=== PATIENT | male | born 1965 | race Caucasian/White ===

== ENCOUNTER 2018-01-04 15:12 | Observation (INO) | payer OTHER ==
[2018-01-04 15:39] VITALS: BMI 30.5
[2018-01-04] MEDS ORDERED: SODIUM CHLORIDE 500 ML IV STA (15:50)
[2018-01-04 16:12] LABS: BASO % 0.1 % (0-2.0); EOS % 0.8 % (0-4.5); HEMATOCRIT 50.1 % (35.4-49); HEMOGLOBIN 16.3 GM/dl (11.7-16.9); LYMPH % 10.5 % (8-40); MCH 28.6 pg (25.7-33.7); MCHC 32.5 g/dl (32.0-35.9); MEAN CELL VOLUME 88.1 fl (80-96); MEAN PLT VOLUME 7.7 fl (7.5-11.1); MONO % 13.1 % (3.8-10.2); NEUT % 75.5 % (42.8-82.8); PLATELET COUNT 267 K/MM3 (134-434); RBC 5.69 M/mm3 (4.00-5.60); RDW 15.3 % (11.9-15.9); WHITE BLOOD COUNT 14.3 K/mm3 (4.0-10.8)
[2018-01-04 16:16] LABS: INR 1.48 (0.82-1.09); PROTHROMBIN TIME (PATIENT) 16.4 SEC (10.2-13.0)
[2018-01-04 16:34] LABS: ALBUMIN 4.3 g/dl (3.5-5.0); ALK PHOS 44 U/L (32-92); ANION GAP 11 MMOL/L (8-16); BILIRUBIN,TOTAL 1.2 mg/dl (0.2-1.0); BLOOD UREA NITROGEN 19 mg/dl (7-18); CALCIUM 9.5 mg/dl (8.4-10.2); CHLORIDE 103 mmol/L (98-107); CO2 23 mmol/L (22-28); CREATININE 1.1 mg/dl (0.6-1.3); GLUCOSE,RANDOM 81 mg/dl (74-106); MAGNESIUM 1.8 mg/dL (1.8-2.4); SGOT/AST 30 U/L (10-42); SGPT/ALT 46 U/L (10-40); SODIUM 137 mmol/L (136-145); TOT PROT 7.5 g/dl (6.4-8.3)
--- NOTE | 2018-01-04 16:35 | PDOC ---
Attending Attestation - Resident Resident Name: Jeremías Harding - ED Attending Attestation I have performed the following: I have examined & evaluated the patient, The case was reviewed & discussed with the resident, I agree w/resident's findings & plan, Exceptions are as noted - HPI HPI: 01/04/18 16:27 52 M with h/o HTN, hypothyroid, pAfib on xarelto, presenting with palpitations. Pt states that he had sudden onset heart-racing at approx 8am today while putting air in his tires. Pt has h/o recurrent afib and states that he has been cardioverted out of it every single time (approx 5 episodes). He states that he is normally in normal sinus. Pt takes xarelto prophylactically and reports good compliance with this medication. Pt denies CP/SOB/lightheadedness. Denies recent F/C/N/V/D. Denies abdominal pain. - Physicial Exam PE: 01/04/18 16:31 "GENERAL: Awake, alert, and fully oriented, in no acute distress. HEAD: No signs of trauma EYES: PERRLA, EOMI, sclera anicteric, conjunctiva clear ENT: Auricles normal inspection, hearing grossly normal, nares patent, oropharynx clear without exudates. Moist mucosa NECK: Nontender, no stepoffs, Normal ROM, supple, no lymphadenopathy, JVD, or masses LUNGS: Breath sounds equal, clear to auscultation bilaterally. No wheezes, and no crackles HEART: + irregular rate and rhythm, no murmurs, rubs or gallops ABDOMEN: Soft, nontender, normoactive bowel sounds. No guarding, no rebound. No masses EXTREMITIES: Normal range of motion, no edema. No clubbing or cyanosis. No cords, erythema, or tenderness NEUROLOGICAL: Cranial nerves II through XII intact. 5/5 strength and sensation in all extremities, Normal speech, normal gait, normal cerebellar function SKIN: Warm, Dry, normal turgor, no rashes or lesions noted." - Critical Care Time Total Critical Care Time: 90 Critical Care Statement: The care of this patient involved high complexity decision making to prevent further life threatening deterioration of the patient 's condition and/or to evaluate & treat vital organ system(s) failure or risk of failure. - Medical Decision Making 01/04/18 16:35 52 M with pAfib on xarelto presenting with palpitations since this morning, found to be in rapid afib. Pt reportedly is normally in sinus rhythm and has been cardioverted out of Afib on numerous occasions. Pt is requesting cardioversion today. Pt appears to be low risk for thromboembolic event, as he is compliant with his Xarelto, and onset of symptoms was only [address] Harding spoke with pt's private conduit mechanic, Dr. Alicia Lowe ([phone] ) who is amenable to cardioverting pt in the ER today. - Labs, coags, trop - CXR - IVF - Consent for procedural sedation and synchronized cardioversion 01/04/18 18:03 Pt sedated with propofol 120mg IV. Synchronized cardioversion performed @ 200 J with successful conversion to sinus rhythm. Will admit to tele obs.
[2018-01-04] MEDS ORDERED: PROPOFOL 20 ML ONE (16:56)
[2018-01-04] MEDS ORDERED: PROPOFOL 200 MG/20 ML VIAL IVPUSH ONE ×6 (16:59→17:27)
[2018-01-04] MEDS ORDERED: SODIUM CHLORIDE 0.9% 1000 ML INFUS.BAG IV ONE (17:00)
--- NOTE | 2018-01-04 17:59 | PDOC ---
History of Present Illness - General Chief Complaint: Palpitations Stated Complaint: PALPITATIONS Time Seen by Provider: 01/04/18 15:14 History Source: Patient Exam Limitations: No Limitations - History of Present Illness Initial Comments: 01/04/18 17:50 The patient is a 52M with a PMH of prior a-fib (on xarelto), HTN, and TIA who presents to the ER with complaints of palpitations and SOB. The patient states that around 0845 this morning, he bent over to fill his tires and felt a "weird sensation" in his chest. He states that he feels intermittently SOB. He denies any active CP but admits to near syncope. Denies LOC/syncope. Denies fevers, chills, nausea, vomiting, abdominal pain. Past History - Past Medical History Allergies/Adverse Reactions: Allergies Allergy/AdvReac Type Severity Reaction Status Date / Time codeine AdvReac Intermediate Nausea Verified 01/04/18 15:14 Home Medications: Ambulatory Orders Levothyroxine [Synthroid -] 175 mcg PO DAILY 01/04/18 Lisinopril/Hydrochlorothiazide [Lisinopril-Hctz 20-12.5 mg Tab] 1 tab PO DAILY 01/04/18 Propranolol HCl [Inderal Xl] 1 tab PO DAILY 01/04/18 Rivaroxaban [Xarelto -] 20 mg PO DAILY 01/04/18 Cardiac Disorders: Yes (A FIB) CVA: Yes (TIA) COPD: No Thyroid Disease: Yes - Immunization History Immunization Up to Date: No - Suicide/Smoking/Psychosocial Hx Smoking History: Never smoked Have you smoked in the past 12 months: No Information on smoking cessation initiated: No Hx Alcohol Use: No Drug/Substance Use Hx: No Substance Use Type: None Review of Systems - Review of Systems Able to Perform ROS?: Yes Comments:: 01/04/18 17:59 GENERAL/CONSTITUTIONAL: No fever or chills. No weakness. HEAD, EYES, EARS, NOSE AND THROAT: No change in vision. No ear pain or discharge. No sore throat. CARDIOVASCULAR: Positive for palpitations and lightheadedness. No chest pain. RESPIRATORY: Positive for cough and SOB. No wheezing or hemoptysis. GASTROINTESTINAL: No nausea, vomiting, diarrhea, constipation, or abdominal pain. GENITOURINARY: No dysuria, frequency, hematuria, or change in urination. MUSCULOSKELETAL: No joint or muscle swelling or pain. No neck or back pain. SKIN: No rash or lesions. NEUROLOGIC: No headache, numbness, tingling, focal weakness, loss of consciousness, or change in strength/sensation. ENDOCRINE: No increased thirst. No abnormal weight change. HEMATOLOGIC/LYMPHATIC: No anemia, easy bleeding, or history of blood clots. ALLERGIC/IMMUNOLOGIC: No hives or skin allergy. Is the patient limited Indonesian proficient: No *Physical Exam - Vital Signs Last Vital Signs Temp Pulse Resp BP Pulse Ox 98.9 F 147 H 18 88/53 100 01/04/18 15:13 01/04/18 17:27 01/04/18 17:27 01/04/18 17:27 01/04/18 17:27 - Physical Exam Comments: 01/04/18 18:00 GENERAL: Well developed, well nourished. Awake and alert. No acute distress. HEENT: Normocephalic, atraumatic. Hearing grossly normal. Moist mucous membranes. PERRLA, EOMI. No conjunctival pallor. Sclera are non-icteric. NECK: Supple. Full ROM. No JVD. CARDIOVASCULAR: Irregularly irregular. No murmurs, rubs, or gallops. PULMONARY: No evidence of respiratory distress. Lungs clear to auscultation bilaterally. No wheezing, rales or rhonchi. ABDOMINAL: Soft. Non-tender. Non-distended. No rebound or guarding. GENITOURINARY: No CVA tenderness bilaterally. MUSCULOSKELETAL: Normal range of motion at all joints. No bony deformities or tenderness. EXTREMITIES: No cyanosis. No clubbing. No edema. No calf tenderness or swelling. SKIN: Warm and dry. Normal capillary refill. No rashes. No jaundice. NEUROLOGICAL: Alert, awake, appropriate. Cranial nerves 2-12 grossly intact. Normal speech. Gait is normal without ataxia. PSYCHIATRIC: Cooperative. Good eye contact. Appropriate mood and affect. Heart Score/ECG Review #1 General ECG Interpretation: Sinus Rhythm, Normal Rate, Normal Intervals, No acute ischemic changes #2 ECG reviewed & interpreted by me at: 18:00 General ECG Interpretation: Sinus Rhythm Compared to previous ECG there are: Changes noted 01/04/18 18:00 NSR vent rate 90 DE 132 QRS 102 QTc 423 NSR No STD or SOFIA No signs of acute ischemia Changed from prior. ED Treatment Course - LABORATORY CBC & Chemistry Diagram: 01/04/18 15:50 01/04/18 15:50 - ADDITIONAL ORDERS Additional order review: Laboratory Results 01/04/18 01/04/18 01/04/18 15:50 15:50 15:50 PT with INR INR Sodium Potassium Chloride Carbon Dioxide Anion Gap BUN Creatinine Creat Clearance w eGFR Random Glucose Calcium Magnesium Total Bilirubin AST ALT Alkaline Phosphatase Creatine Kinase 218 Creatine Kinase Index 1.7 CK-MB (CK-2) 3.8 Troponin I < 0.03 B-Natriuretic Peptide 80.10 Total Protein Albumin 01/04/18 01/04/18 15:50 15:50 PT with INR 16.4 H INR 1.48 H Sodium 137 Potassium 4.0 Chloride 103 Carbon Dioxide 23 Anion Gap 11 BUN 19 H Creatinine 1.1 Creat Clearance w eGFR > 60 Random Glucose 81 Calcium 9.5 Magnesium 1.8 Total Bilirubin 1.2 H AST 30 ALT 46 H Alkaline Phosphatase 44 Creatine Kinase Cancelled Creatine Kinase Index CK-MB (CK-2) Troponin I Cancelled B-Natriuretic Peptide Total Protein 7.5 Albumin 4.3 01/04/18 15:50 RBC 5.69 H MCV 88.1 MCHC 32.5 RDW 15.3 MPV 7.7 Neutrophils % 75.5 Lymphocytes % 10.5 Monocytes % 13.1 H Eosinophils % 0.8 Basophils % 0.1 - RADIOLOGY Radiology Studies Ordered: Category Date Time Status CHEST X-RAY PORTABLE* [RAD] Stat Radiology 01/04/18 15:43 Taken - Medications Given in the ED: ED Medications Discontinued Medications Generic Name Dose Route Start Last Admin Trade Name Freq PRN Reason Stop Dose Admin Sodium Chloride 500 mls @ 1,000 mls/hr 01/04/18 15:50 01/04/18 15:55 Normal Saline - IV 01/04/18 16:19 1,000 mls/hr ASDIR STA Administration Propofol 50 mcg 01/04/18 16:59 01/04/18 17:15 Diprivan - IVPUSH 01/04/18 17:00 Not Given ONCE ONE Propofol 50,000 mcg 01/04/18 17:04 01/04/18 17:16 Diprivan - IVPUSH 01/04/18 17:05 50,000 mcg ONCE ONE Administration Medical Decision Making - Medical Decision Making 01/04/18 18:01 The patient is a 52M with a PMH of a-fib (on xarelto), HTN, and TIA who presents to the ER with known onset of palpitations. EKG shows rapid a-fib. I have d/w the patient's wet mix operator who states that the patient is normally in NSR but has been cardioverted twice. She agrees to our plan of cardioversion. The patient is normotensive but has a fluctuating HR 2/2 a-fib. Consent was obtained. Propofol was given for sedation. The patient tolerated the electrical cardioversion with 200J and has remained in NSR. Will place orders for admission. 01/04/18 18:09 I have endorsed the patient to Dr. Schmitt for observation. *DC/Admit/Observation/Transfer Diagnosis at time of Disposition: Palpitations, Atrial fibrillation, rapid, Atrial fibrillation status post cardioversion - Discharge Dispostion Condition at time of disposition: Guarded Decision to Admit order: Yes - Referrals - Patient Instructions - Post Discharge Activity
[2018-01-04] MEDS ORDERED: ACETAMINOPHEN 325 MG TABLET (FP) PO PRN (18:10)
--- NOTE | 2018-01-04 23:50 | HP ---
CHIEF COMPLAINT: palpitations PCP: Cardiology: Alicia Victoria [phone] HISTORY OF PRESENT ILLNESS: This is a 52 year old male with a history of afib s/p multiple cardioversions who presented to the ED with palpitations and "not feeling right" since this morning. Pt reports that he became lightheaded when bending over to put air in his tires today. He felt an odd sensation in his chest as well. He also reports not feeling his usual self for about the last week. More easily fatigued and not his usual pep. ER course was notable for: (1) noted to be in AFib with RVR when placed on monitor (2) cardioverted with 200J Recent Travel: pt denies PAST MEDICAL HISTORY: HTN, AFIB, HYPOTHYROID S/P RADIOABLATION, OA PAST SURGICAL HISTORY: c4-c7 laminectomy and fusion lumbar discectomy L THR Social History: Smoking: pt denies Alcohol: pt denies Drugs: pt denies Family History: mother age 76. mult med problems including HTN, thyroid father alive and well one brother with DM multiple sibling with OA requiring joint replacement Allergies codeine Adverse Reaction (Intermediate, Verified 01/04/18 15:14) Nausea HOME MEDICATIONS: 3 Medication Instructions Recorded Levothyroxine [Synthroid -] 175 mcg PO DAILY 01/04/18 Lisinopril/Hydrochlorothiazide 1 tab PO DAILY 01/04/18 [Lisinopril-Hctz 20-12.5 mg Tab] Propranolol HCl [Inderal Xl] 1 tab PO DAILY 01/04/18 Rivaroxaban [Xarelto -] 20 mg PO DAILY 01/04/18 REVIEW OF SYSTEMS CONSTITUTIONAL: Absent: fever, chills, diaphoresis, generalized weakness, malaise, loss of appetite, weight change HEENT: Absent: rhinorrhea, nasal congestion, throat pain, throat swelling, difficulty swallowing, mouth swelling, ear pain, eye pain, visual changes CARDIOVASCULAR: Present: palpitations, irregular heart rate, lightheadedness Absent: chest pain, syncope, peripheral edema RESPIRATORY: Absent: cough, shortness of breath, dyspnea with exertion, orthopnea, wheezing, stridor, hemoptysis GASTROINTESTINAL: Absent: abdominal pain, abdominal distension, nausea, vomiting, diarrhea, constipation, melena, hematochezia GENITOURINARY: Absent: dysuria, frequency, urgency, hesitancy, hematuria, flank pain, genital pain MUSCULOSKELETAL: Absent: myalgia, arthralgia, joint swelling, back pain, neck pain SKIN: Absent: rash, itching, pallor HEMATOLOGIC/IMMUNOLOGIC: Absent: easy bleeding, easy bruising, lymphadenopathy, frequent infections ENDOCRINE: Absent: unexplained weight gain, unexplained weight loss, heat intolerance, cold intolerance NEUROLOGIC: Absent: headache, focal weakness or paresthesias, dizziness, unsteady gait, seizure, mental status changes, bladder or bowel incontinence PSYCHIATRIC: Absent: anxiety, depression, suicidal or homicidal ideation, hallucinations. PHYSICAL EXAMINATION Vital Signs - 24 hr 3 01/04/18 01/04/18 01/04/18 15:13 16:04 16:32 Temperature 98.9 F Pulse Rate 138 H Pulse Rate [ 135 H 158 H Apical] Pulse Rate [ Right Upper Arm ] Respiratory 22 20 20 Rate Respiratory Rate [Right Upper Arm] Blood Pressure 111/67 Blood Pressure 106/76 142/118 [Right Arm] Blood Pressure [Right Upper Arm] O2 Sat by Pulse 100 100 Oximetry (%) O2 Sat by Pulse Oximetry (%) [ Right Upper Arm ] 3 01/04/18 01/04/18 01/04/18 16:47 17:07 17:10 Temperature Pulse Rate Pulse Rate [ 137 H 160 H 148 H Apical] Pulse Rate [ 148 H Right Upper Arm ] Respiratory 20 20 20 Rate Respiratory 20 Rate [Right Upper Arm] Blood Pressure Blood Pressure 125/70 95/83 106/86 [Right Arm] Blood Pressure 106/86 [Right Upper Arm] O2 Sat by Pulse 98 98 Oximetry (%) O2 Sat by Pulse 98 Oximetry (%) [ Right Upper Arm ] 3 01/04/18 01/04/18 01/04/18 17:15 17:19 17:23 Temperature Pulse Rate Pulse Rate [ 140 H 160 H 150 H Apical] Pulse Rate [ 140 H Right Upper Arm ] Respiratory 24 28 H 20 Rate Respiratory 24 Rate [Right Upper Arm] Blood Pressure Blood Pressure 101/75 123/90 94/84 [Right Arm] Blood Pressure 101/75 [Right Upper Arm] O2 Sat by Pulse 100 Oximetry (%) O2 Sat by Pulse 98 Oximetry (%) [ Right Upper Arm ] 3 01/04/18 01/04/18 01/04/18 17:25 17:27 17:30 Temperature Pulse Rate Pulse Rate [ 143 H 147 H 148 H Apical] Pulse Rate [ Right Upper Arm ] Respiratory 20 18 20 Rate Respiratory Rate [Right Upper Arm] Blood Pressure Blood Pressure 92/60 88/53 82/61 [Right Arm] Blood Pressure [Right Upper Arm] O2 Sat by Pulse 98 100 Oximetry (%) O2 Sat by Pulse Oximetry (%) [ Right Upper Arm ] 3 01/04/18 01/04/18 01/04/18 17:32 17:33 17:36 Temperature Pulse Rate Pulse Rate [ 88 86 86 Apical] Pulse Rate [ 86 Right Upper Arm ] Respiratory 24 20 20 Rate Respiratory 20 Rate [Right Upper Arm] Blood Pressure Blood Pressure 91/63 100/52 [Right Arm] Blood Pressure 91/63 [Right Upper Arm] O2 Sat by Pulse 97 Oximetry (%) O2 Sat by Pulse Oximetry (%) [ Right Upper Arm ] 3 01/04/18 01/04/18 01/04/18 17:41 17:44 17:53 Temperature Pulse Rate Pulse Rate [ 86 84 85 Apical] Pulse Rate [ Right Upper Arm ] Respiratory 20 18 24 Rate Respiratory Rate [Right Upper Arm] Blood Pressure Blood Pressure 104/62 108/73 105/59 [Right Arm] Blood Pressure [Right Upper Arm] O2 Sat by Pulse 98 97 98 Oximetry (%) O2 Sat by Pulse Oximetry (%) [ Right Upper Arm ] 3 01/04/18 01/04/18 01/04/18 17:57 18:18 18:28 Temperature Pulse Rate Pulse Rate [ 87 88 90 Apical] Pulse Rate [ Right Upper Arm ] Respiratory 20 20 24 Rate Respiratory Rate [Right Upper Arm] Blood Pressure Blood Pressure 126/68 114/73 94/68 [Right Arm] Blood Pressure [Right Upper Arm] O2 Sat by Pulse 98 100 100 Oximetry (%) O2 Sat by Pulse Oximetry (%) [ Right Upper Arm ] 3 01/04/18 01/04/18 18:45 20:30 Temperature 98.1 F Pulse Rate 84 Pulse Rate [ 87 Apical] Pulse Rate [ Right Upper Arm ] Respiratory 20 17 Rate Respiratory Rate [Right Upper Arm] Blood Pressure 125/70 Blood Pressure 104/73 [Right Arm] Blood Pressure [Right Upper Arm] O2 Sat by Pulse 98 96 Oximetry (%) O2 Sat by Pulse Oximetry (%) [ Right Upper Arm ] GENERAL: Awake, alert, and fully oriented, in no acute distress. HEAD: Normal with no signs of trauma. EYES: Pupils equal, round and reactive to light, extraocular movements intact, sclera anicteric, conjunctiva clear. No lid lag. EARS, NOSE, THROAT: Ears normal, nares patent, oropharynx clear without exudates. Moist mucous membranes. NECK: Normal range of motion, supple without lymphadenopathy, JVD, or masses. LUNGS: Breath sounds equal, clear to auscultation bilaterally. No wheezes, and no crackles. No accessory muscle use. HEART: Regular rate and rhythm, normal S1 and S2 without murmur, rub or gallop. ABDOMEN: Soft, nontender, not distended, normoactive bowel sounds, no guarding, no rebound, no masses. No hepatomegaly or splenomegaly. MUSCULOSKELETAL: Normal range of motion at all joints. No bony deformities or tenderness. No CVA tenderness. UPPER EXTREMITIES: 2+ pulses, warm, well-perfused. No cyanosis. No clubbing. No peripheral edema. LOWER EXTREMITIES: 2+ pulses, warm, well-perfused. No calf tenderness. No peripheral edema. NEUROLOGICAL: Cranial nerves II-XII intact. Normal speech. Normal gait. PSYCHIATRIC: Cooperative. Good eye contact. Appropriate mood and affect. SKIN: Warm, dry, normal turgor, no rashes or lesions noted, normal capillary refill. Laboratory Results - last 24 hr 3 01/04/18 01/04/18 01/04/18 15:50 15:50 15:50 WBC 14.3 H RBC 5.69 H Hgb 16.3 Hct 50.1 H MCV 88.1 MCH 28.6 MCHC 32.5 RDW 15.3 Plt Count 267 MPV 7.7 Absolute Neuts (auto) 10.8 Neutrophils % 75.5 Lymphocytes % 10.5 Monocytes % 13.1 H Eosinophils % 0.8 Basophils % 0.1 PT with INR 16.4 H INR 1.48 H Sodium Potassium Chloride Carbon Dioxide Anion Gap BUN Creatinine Creat Clearance w eGFR Random Glucose Calcium Magnesium Total Bilirubin AST ALT Alkaline Phosphatase Creatine Kinase Creatine Kinase Index CK-MB (CK-2) Troponin I B-Natriuretic Peptide Total Protein Albumin TSH 4.14 H 3 01/04/18 01/04/18 01/04/18 01/04/18 15:50 15:50 15:50 22:00 WBC RBC Hgb Hct MCV MCH MCHC RDW Plt Count MPV Absolute Neuts (auto) Neutrophils % Lymphocytes % Monocytes % Eosinophils % Basophils % PT with INR INR Sodium 137 Potassium 4.0 Chloride 103 Carbon Dioxide 23 Anion Gap 11 BUN 19 H Creatinine 1.1 Creat Clearance w eGFR > 60 Random Glucose 81 Calcium 9.5 Magnesium 1.8 Total Bilirubin 1.2 H AST 30 ALT 46 H Alkaline Phosphatase 44 Creatine Kinase Cancelled 218 Creatine Kinase Index 1.7 CK-MB (CK-2) 3.8 Troponin I Cancelled < 0.03 < 0.03 B-Natriuretic Peptide 80.10 Total Protein 7.5 Albumin 4.3 TSH ECG 01/04/18 15:25 Atrial fibrillation with RVR vent rate 138, QTC 457 TWI lead III, aVF 01/04/18 17:39 Normal sinus rhythm minimal voltage criteria for LVH TWI still present lead III, AVF Radiology Reports CXR A single AP view of the chest reveals a prominent mediastinum with large heart, clear lungs and lower cervical spine fusion. An acute process is not seen. There are no prior studies for comparison. Reported By: Noe Thompson MD 01/04/18 2291 ASSESSMENT/PLAN: 52yM with PMH HTN, PAF on xarelto, TIA, hypothyroidism presented to the ED with palpitations, rapid HB and just not feeling well. Afib with RVR - cardioverted in ED - cont tele monitoring. If no futher Afib episodes, consider DC home in AM with outpatient cardio follow up - trop neg x 2, trend x 1 more HTN - cont home meds: lisinopril, HCTZ, propranolol hypothyroid - TSH 4.14, cont home synthroid DVT PPX - cont home xarelto FEN - tolerating po - BMP in am - low sodium diet as tolerated Dispo: pt currently requires further observation. Visit type - Emergency Visit Emergency Visit: Yes ED Registration Date: 01/04/18 Care time: The patient presented to the Emergency Department on the above date and was hospitalized for further evaluation of their emergent condition. - New Patient This patient is new to me today: Yes Date on this admission: 01/04/18 - Critical Care Critical Care patient: No Hospitalist Screening - Colonoscopy Questionnaire Colonoscopy Questionnaire: Colonoscopy Questionnaire - Patient: 50 - 75 years old and never had a screening colonoscopy: Yes (does FOBT testing annually) History of colon or rectal polyps, or CA: No History of IBD, Crohn's disease or UC: No History of abdominal radiation therapy as a child: No - Relative: 1 with colon or rectal CA, or polyps at age 60 or younger: No Colon or rectal CA diagnosed at age 45 or younger: No Multiple relatives with colon or rectal CA: No - Outcome: Screening Result: Positive Screen
[2018-01-05] MEDS ORDERED: LEVOTHYROXINE NA 175 MCG TABLET PO SCH (07:00)
[2018-01-05 08:33] LABS: BASO % 0.4 % (0-2.0); EOS % 0.6 % (0-4.5); HEMATOCRIT 43.8 % (35.4-49); HEMOGLOBIN 14.6 GM/dl (11.7-16.9); LYMPH % 12.4 % (8-40); MCH 28.9 pg (25.7-33.7); MCHC 33.3 g/dl (32.0-35.9); MEAN CELL VOLUME 86.9 fl (80-96); MEAN PLT VOLUME 7.8 fl (7.5-11.1); MONO % 13.3 % (3.8-10.2); NEUT % 73.3 % (42.8-82.8); PLATELET COUNT 226 K/MM3 (134-434); RBC 5.04 M/mm3 (4.00-5.60); RDW 15.1 % (11.9-15.9); WHITE BLOOD COUNT 12.3 K/mm3 (4.0-10.8)
[2018-01-05 08:39] LABS: ANION GAP 9 MMOL/L (8-16); BLOOD UREA NITROGEN 13 mg/dl (7-18); CALCIUM 8.8 mg/dl (8.4-10.2); CHLORIDE 102 mmol/L (98-107); CO2 26 mmol/L (22-28); GLUCOSE,RANDOM 94 mg/dl (74-106); MAGNESIUM 1.7 mg/dL (1.8-2.4); POTASSIUM 3.6 mmol/L (3.5-5.1); SODIUM 137 mmol/L (136-145)
[2018-01-05] MEDS ORDERED: HYDROCHLOROTHIAZIDE 12.5 MG CAPSULE (FP) PO SCH (10:00)
[2018-01-05] MEDS ORDERED: LISINOPRIL 20 MG TABLET (FP) PO SCH (10:00)
[2018-01-05] MEDS ORDERED: PATIENT'S OWN MEDICATION (NON-FORMULARY) (Lisinopril/Hydrochlorothiazide [Lisinopril-Hctz PO SCH (10:00)
[2018-01-05] MEDS ORDERED: RIVAROXABAN 20 MG TABLET PO SCH (10:00)
[2018-01-05 10:44] VITALS: BP 127/67; PULSE 100; TEMP 98.5
[2018-01-05] MEDS ORDERED: MAGNESIUM OXIDE 400 MG TABLET (FP) PO ONE (10:53)
[2018-01-05] MEDS ORDERED: PT OWN MED DRAWER 7, Y5N ONE (10:53)
--- NOTE | 2018-01-05 11:07 | DS ---
Physical Examination Vital Signs: Vital Signs Temperature 98.5 F 01/05/18 10:00 Pulse Rate 100 H 01/05/18 10:00 Respiratory Rate 12 01/05/18 10:00 Blood Pressure 127/67 01/05/18 10:00 O2 Sat by Pulse Oximetry (%) 96 01/05/18 10:00 Findings/Remarks: General: NAD, A&Ox3 Lungs: CTA bilaterally Heart: RRR, S1S2 Abd: Soft, non-tender, non-distended. Normoactive bowel sounds Ext: Warm, well-perfused. 2+ DP/PT bilaterally Neuro: CN 2-12 intact Labs: CBC, BMP 01/05/18 07:27 01/05/18 07:27 Discharge Summary Reason For Visit: PALPITATIONS Current Active Problems Atrial fibrillation status post cardioversion (Acute) Atrial fibrillation, rapid (Acute) Palpitations (Acute) Hospital Course: This is a 52 year old male with a history of afib s/p multiple cardioversions who presented to the ED with palpitations and "not feeling right" since yesterday morning. The patient was found to be in a.fib with RVR and was cardioverted in the ED. The patient has been in sinus rhythm since conversion. The patient reports he has been in contact with his justice court deputy clerk and that he will follow-up with them on Sunday. He does not want to change any of his medications at this time. Trop x3 negative. The patient was discharged and instructed to follow-up with his pcp and cardiology on Sunday. This discharge took 35 minutes to complete. Condition: Improved - Instructions Diet, Activity, Other Instructions: Please return to the ED with new, persistent, or worsening symptoms. Please follow-up with providers as indicated. Please follow-up with your justice court deputy clerk on Sunday01/07/18. Referrals: Flip Martinez MD [Staff Physician] - (Please follow-up with a primary care provider withiin 2-3 days. ) Disposition: HOME - Home Medications Comprehensive Discharge Medication List: Ambulatory Orders Levothyroxine [Synthroid -] 175 mcg PO DAILY 01/04/18 Lisinopril/Hydrochlorothiazide [Lisinopril-Hctz 20-12.5 mg Tab] 1 tab PO DAILY 01/04/18 Propranolol HCl [Inderal Xl] 1 tab PO DAILY 01/04/18 Rivaroxaban [Xarelto -] 20 mg PO DAILY 01/04/18 Acetaminophen [Tylenol .Regular Strength -] 650 mg PO Q4H PRN #0 tablet This patient is new to me today: Yes Date on this admission: 01/05/18 Emergency Visit: Yes ED Registration Date: 01/04/18 Care time: The patient presented to the Emergency Department on the above date and was hospitalized for further evaluation of their emergent condition. Critical Care patient: No - Discharge Referral Referred to [facility] Med [facility].C[facility] Yes Physician Referral: Flip Martinez MD (Int Med)
--- NOTE | 2018-01-06 22:25 | EKG ---
Test Reason : Blood Pressure : / mmHG Vent. Rate : 086 BPM Atrial Rate : 086 BPM P-R Int : 132 ms QRS Dur : 102 ms QT Int : 354 ms P-R-T Axes : 021 006 008 degrees QTc Int : 423 ms NORMAL SINUS RHYTHM MINIMAL VOLTAGE CRITERIA FOR LVH, MAY BE NORMAL VARIANT BORDERLINE ECG WHEN COMPARED WITH ECG OF 04-JAN-2018 15:25, SINUS RHYTHM HAS REPLACED ATRIAL FIBRILLATION VENT. RATE HAS DECREASED BY 52 BPM NONSPECIFIC T WAVE ABNORMALITY, IMPROVED IN LATERAL LEADS Confirmed by ROBERTO MORALES MD ([id number]) on 01/06/2018 10:25:07 PM Referred By: MD COHN Confirmed By:ROBERTO MORALES MD
== END 2018-01-05 11:45 | disposition home or self-care (01) ==
LOC: FER 15:12 → FM/S 18:10
PROVIDERS: ADMIT Internal Medicine; ATTEND Registered Nurse
PROC: 5A2204Z Restoration of Cardiac Rhythm, Single (ICD-10-PCS; principal; 2018-01-04)
PROC: 3E033GC Introduction of Other Therapeutic Substance into Peripheral Vein, Percutaneous Approach (ICD-10-PCS; 2018-01-04)
DX: I48.91 Unspecified atrial fibrillation (principal); Z79.01 Long term (current) use of anticoagulants; E03.9 Hypothyroidism, unspecified; I10 Essential (primary) hypertension; Z86.73 Personal history of transient ischemic attack (TIA), and cerebral infarction without residual deficits; Z96.642 Presence of left artificial hip joint; Z98.1 Arthrodesis status
CPT/HCPCS: 36415; 71045-TC-FY; 80048; 80053; 82550; 82553; 83735; 83880; 84443; 84484; 85025; 85610; 92960; 93005; 96374; 96376; 99285-25; G0378; J7030

== ENCOUNTER 2018-12-17 10:22 | Emergency (ER) | payer OTHER ==
[2018-12-17 10:29] VITALS: BP 141/91; PULSE 82; TEMP 98.2; BMI 29.8
--- NOTE | 2018-12-17 10:48 | PDOC ---
History of Present Illness - General Chief Complaint: Lightheaded Stated Complaint: DIZZINES/VERTIGO Time Seen by Provider: 12/17/18 10:44 - History of Present Illness Initial Comments: 12/17/18 12:05 HPI: 53 y/o M hx of AFib s/p radioablation (2003 and 07/2018) on xarelto, HTN, hypothyroid, vertigo presenting with 28 hrs of vertigo. He woke up at 7am yesterday morning and when he attempted to get up he felt an immediate sensation of vertigo similar to his previous episodes. Symptoms are positional and worsened with turning head to the side L>R, tilting head forward/backward, and lying down. Due to symptoms, he stayed in bed all of yesteday. He reports almost falling, but no syncopal events, falls, seizures. During the episodes he reports nausea, left sided blurriness, left ear discomfort, and left sided headache. He denies fever, chills, chest pain, SOB, emesis Of note, he reports requiring to stuff his ears with toilet paper for 2 nights prior to onset of symptoms due to increased noise complaints where he slept and he had no ear plugs. Denies any significant trauma or impaction. PMHx: as noted above ROS: as noted SHx: Denies tobacco use; no alcohol use; no rec drugs Allergies: NKDA Past History - Past Medical History Allergies/Adverse Reactions: Allergies Allergy/AdvReac Type Severity Reaction Status Date / Time codeine AdvReac Intermediate Nausea Verified 12/17/18 10:29 Home Medications: Ambulatory Orders Levothyroxine [Synthroid -] 175 mcg PO DAILY 01/04/18 Lisinopril/Hydrochlorothiazide [Lisinopril-Hctz 20-12.5 mg Tab] 1 tab PO DAILY 01/04/18 Rivaroxaban [Xarelto] 20 mg PO DAILY 01/04/18 propRANOLol HCL [Inderal Xl] 1 tab PO DAILY 01/04/18 Acetaminophen [Tylenol .Regular Strength -] 650 mg PO Q4H PRN #0 tablet Meclizine HCl [Antivert -] 25 mg PO TID PRN #21 tablet 12/17/18 Cardiac Disorders: Yes (A FIB) CVA: Yes (TIA) COPD: No HTN: Yes Hypercholesterolemia: Yes (bordrline) Thyroid Disease: Yes Other medical history: vertigo, migraines - Immunization History Immunization Up to Date: No - Suicide/Smoking/Psychosocial Hx Smoking History: Never smoked Have you smoked in the past 12 months: No Hx Alcohol Use: No Drug/Substance Use Hx: No Substance Use Type: None Review of Systems - Review of Systems Comments:: 12/17/18 12:14 GENERAL/CONSTITUTIONAL: No fever or chills. No weakness. HEAD, EYES, EARS, NOSE AND THROAT: +change in vision, ear pain. no ear discharge. No sore throat. CARDIOVASCULAR: No chest pain or shortness of breath RESPIRATORY: No cough, wheezing, or hemoptysis. GASTROINTESTINAL: No vomiting, diarrhea or constipation. GENITOURINARY: No dysuria, frequency, or change in urination. MUSCULOSKELETAL: No joint or muscle swelling or pain. No neck or back pain. SKIN: No rash NEUROLOGIC: +headache, vertigo. noloss of consciousness, or change in strength/ sensation. ENDOCRINE: No increased thirst. No abnormal weight change HEMATOLOGIC/LYMPHATIC: No anemia, easy bleeding, or history of blood clots. ALLERGIC/IMMUNOLOGIC: No hives or skin allergy. *Physical Exam - Vital Signs Last Vital Signs Temp Pulse Resp BP Pulse Ox 98.2 F 82 18 141/91 99 12/17/18 10:26 12/17/18 10:26 12/17/18 10:26 12/17/18 10:26 12/17/18 10:26 - Physical Exam Comments: 12/17/18 12:17 GENERAL: Awake, alert, and fully oriented, in no acute distress HEAD: No signs of trauma, normocephalic, atraumatic EYES: PERRLA, EOMI, sclera anicteric, conjunctiva clear ENT: Auricles normal inspection, hearing grossly normal, nares patent, oropharynx clear without exudates. Moist mucosa NECK: Normal ROM, supple, no lymphadenopathy, JVD, or masses LUNGS: No distress, speaks full sentences, clear to auscultation bilaterally HEART: Regular rate and rhythm, normal S1 and S2, no murmurs, rubs or gallops, peripheral pulses normal and equal bilaterally. ABDOMEN: Soft, nontender, normoactive bowel sounds. No guarding, no rebound. No masses EXTREMITIES : Normal inspection, Normal range of motion, no edema. No clubbing or cyanosis. NEUROLOGICAL: Cranial nerves II through XII grossly intact. Normal speech, normal gait, no focal sensorimotor deficits. Not able to tolerate Moises hallpike due to vertigo; no nystamgius present SKIN: Warm, Dry, normal turgor, no rashes or lesions noted ED Treatment Course - LABORATORY CBC & Chemistry Diagram: 12/17/18 12:02 12/17/18 12:02 Medical Decision Making - Medical Decision Making 12/17/18 12:18 53 y/o M hx of AFib s/p radioablation (2003 and 07/2018) on xarelto, HTN, hypothyroid, vertigo presenting with 28 hrs of positional vertigo associated with nausea. Vitals wnl. PE unremarkable, but unable to tolerate full neurological exam due to symptoms. DDX includes vertigo, CVA, cardiac/ electrolytre abnormalities. Given history of vertigo and similar presentation with no focal neruo deficits, will defer CTH at this time -cbc, cmp, trops, EKG -IVF, xofran, meclizine 12/17/18 14:03 symptoms after 2 doses of meclizine patient comfortable going home and understands instructions for followup with PCP; script for meclizine patient walked in ED and no gait disturbances present *DC/Admit/Observation/Transfer Diagnosis at time of Disposition: Vertigo - Discharge Dispostion Disposition: HOME Condition at time of disposition: Improved Decision to Admit order: No - Prescriptions Prescriptions: Meclizine HCl [Antivert -] 25 mg PO TID PRN #21 tablet PRN Reason: Vertigo - Referrals Referrals: ON STAFF,NOT [Primary Care Provider] - - Patient Instructions Printed Discharge Instructions: DI for Vertigo Additional Instructions: Additional Instructions: Please return to the emergency department with any new or worsening symptoms or concerns including falls, seizures, fainting. Please follow up with your primary care physician within 48 hours for further followup and for neurologist followup if symptoms dont improve Take prescribed medication as instructed. - Post Discharge Activity
[2018-12-17] MEDS ORDERED: SODIUM CHLORIDE 1,000 ML IV STA (11:40)
[2018-12-17] MEDS ORDERED: ONDANSETRON 4 MG/2 ML VIAL IVPUSH ONE (11:40)
[2018-12-17] MEDS ORDERED: ONDANSETRON 4 MG/2 ML VIAL ONE (11:47)
[2018-12-17] MEDS ORDERED: MECLIZINE HCL 25 MG TABLET (FP) PO ONE ×2 (12:03→12:50)
[2018-12-17] MEDS ORDERED: MECLIZINE HCL 25 MG TABLET (FP) ONE ×2 (12:09→13:17)
[2018-12-17 12:15] LABS: BASO % 1.3 % (0-2.0); EOS % 1.6 % (0-4.5); HEMATOCRIT 50.2 % (35.4-49); HEMOGLOBIN 17.5 GM/dL (11.7-16.9); LYMPH % 22.2 % (8-40); MCH 29.9 pg (25.7-33.7); MCHC 34.8 g/dl (32.0-35.9); MEAN CELL VOLUME 85.7 fl (80-96); MEAN PLT VOLUME 7.4 fl (7.5-11.1); MONO % 11.1 % (3.8-10.2); NEUT % 63.8 % (42.8-82.8); PLATELET COUNT 262 K/MM3 (134-434); RBC 5.86 M/mm3 (4.00-5.60); RDW 15.1 % (11.9-15.9); WHITE BLOOD COUNT 6.7 K/mm3 (4.0-10.0)
[2018-12-17 12:44] LABS: ALBUMIN 4.5 g/dl (3.4-5.0); ALK PHOS 57 U/L (45-117); ANION GAP 9 MMOL/L (8-16); BILIRUBIN,TOTAL 0.8 mg/dL (0.2-1); BLOOD UREA NITROGEN 16.8 mg/dL (7-18); CALCIUM 9.8 mg/dL (8.5-10.1); CHLORIDE 103 mmol/L (98-107); CO2 27 mmol/L (21-32); GLUCOSE,RANDOM 99 mg/dL (74-106); POTASSIUM 4.5 mmol/L (3.5-5.1); SGOT/AST 55 U/L (15-37); SGPT/ALT 87 U/L (13-61); SODIUM 139 mmol/L (136-145); TOT PROT 8.5 g/dl (6.4-8.2)
--- NOTE | 2018-12-17 13:51 | PDOC ---
Documentation entered by Marci Winchester SCRIBE, acting as scribe for Marek Jamil MD. Marek Jamil MD: This documentation has been prepared by the Annabella bloom Renju, SCRIBE, under my direction and personally reviewed by me in its entirety. I confirm that the documentation accurately reflects all work, treatment, procedures, and medical decision making performed by me. Attending Attestation - Resident Resident Name: LoganTesha - ED Attending Attestation I have performed the following: I have examined & evaluated the patient, The case was reviewed & discussed with the resident, I agree w/resident's findings & plan, Exceptions are as noted - HPI HPI: 12/17/18 11:40 The patient is a 53 year old male with a past medical history of hypertension, A -fib on propRANOLol, hypothyroidism, and vertigo who presents to the emergency department for evaluation of 1 day of dizziness. Patient reports intermittent episodes of dizziness, exacerbated when he looks towards the left, since 0700 yesterday. He endorses left sided blurriness in vision and left sided headache during his episode of dizziness. Patient also endorses intermittent episodes of nausea . He notes he has been leaning towards the left when ambulating. The patient denies chest pain, shortness of breath, paresthesia in extremities, fevers, chills, vomiting, and any bowel/urinary problems. ROS: A complete review of 10 out of 10 review of systems is taken and is negative apart from what is previously mentioned below and in the HPI. - Physicial Exam PE: 12/17/18 13:38 - Medical Decision Making 12/17/18 13:50 53 years old with history of vertigo presents with very classic benign positional vertigo asymptomatic until he lays down or turns his head to the side symptoms are intense associated with nausea vomiting relief quickly when patient does not move his head drove to the ED currently has received IV fluids and meclizine a feels much better Currently asymptomatic Normal neurologic exam We'll discharge home with prescription for meclizine neurology follow-up instructions to perform Teodoro maneuver at home Findings, need for follow-up and strict return instructions discussed with patient.
--- NOTE | 2018-12-18 10:54 | EKG ---
Test Reason : Blood Pressure : / mmHG Vent. Rate : 077 BPM Atrial Rate : 077 BPM P-R Int : 136 ms QRS Dur : 102 ms QT Int : 398 ms P-R-T Axes : 043 000 017 degrees QTc Int : 450 ms NORMAL SINUS RHYTHM MODERATE VOLTAGE CRITERIA FOR LVH, MAY BE NORMAL VARIANT NONSPECIFIC T WAVE ABNORMALITY ABNORMAL ECG WHEN COMPARED WITH ECG OF 04-JAN-2018 17:39, NONSPECIFIC T WAVE ABNORMALITY HAS REPLACED INVERTED T WAVES IN INFERIOR LEADS NONSPECIFIC T WAVE ABNORMALITY, WORSE IN LATERAL LEADS Confirmed by CHARLA MILLER, JAMES ([id number]) on 12/18/2018 10:54:06 AM Referred By: Confirmed By:JAMES DUNHAM MD
== END 2018-12-17 14:21 | disposition home or self-care (01) ==
LOC: JER 10:22
PROC: 3E033GC Introduction of Other Therapeutic Substance into Peripheral Vein, Percutaneous Approach (ICD-10-PCS; principal; 2018-12-17)
DX: H81.10 Benign paroxysmal vertigo, unspecified ear (principal); I48.91 Unspecified atrial fibrillation; Z79.01 Long term (current) use of anticoagulants; I10 Essential (primary) hypertension; E03.9 Hypothyroidism, unspecified
CPT/HCPCS: 36415; 80053; 82550; 84484; 85025; 93005; 93010; 96374; 99282-25; J7030